=== PATIENT | female | born 1960 | race Caucasian/White ===

== ENCOUNTER → 2019-11-07 15:51 | Outpatient (CLI) | payer OTHER, SELFPAY ==
--- NOTE | 2019-11-07 | DI.MRI.S_ITS ---
PROCEDURE: MR KNEE RT WO CON INDICATIONS: RIGHT KNEE PAIN TECHNIQUE: Noncontrast sagittal PD fast spin echo and T2 fast spin echo with fat saturation, sagittal 3-D FLASH with fat saturation; coronal T1 spin echo and PD fast spin echo with fat saturation, and axial PD fast spin echo with fat saturation through the knee. COMPARISON: [facility], MR, KNEE WITHOUT CONTRAST, 10/21/2015, 12:22. FINDINGS: Image quality: Excellent. Menisci: Medial meniscal tear involving the free margin and undersurface of the body. Lateral meniscal tear also present with marked truncation of the free margin of the body, and abnormal signal extending to the superior and inferior articular surfaces of the body. Cruciate ligaments: Anterior cruciate ligament appears intact. Posterior cruciate ligament appears intact. Medial structures: The medial collateral ligament appears intact. Mild semimembranosus insertional tendinopathy. Visualized portions of the pes anserinus tendons appear normal. No abnormal bursal fluid. Lateral structures: The lateral collateral ligament intact. Biceps femoris tendon appears intact. Popliteus tendon grossly unremarkable. Iliotibial band appears intact. Anterior structures: Quadriceps tendon intact. Medial patellofemoral ligament appears intact. Thickening although grossly intact appearance of the lateral patellofemoral ligament and retinaculum. This may be related to prior chronic sprain versus reactive changes to advanced patellofemoral joint degeneration described below There is mild patellar tendinopathy. Prepatellar and superficial infrapatellar subcutaneous edema/fluid. Bones and cartilage: No focal marrow contusion or discrete low signal fracture line. T2 hyperintense partially visualized lobulated lesion seen within the distal femoral diametaphysis, incompletely evaluated. At the margin of the visualized portion, no marrow edema. Within the medial compartment, cartilage appears intact Within the lateral compartment, the diffuse partial thickness loss of the femoral articular cartilage and intrasubstance signal changes of the tibial cartilage without focal defect Within the patellofemoral compartment, severe diffuse full thickness denudation of the patellar and femoral articular cartilage with prominent subchondral sclerosis and cystic change/edema. There is also mild lateral patellar tilt and lateral patellar subluxation. Joint space: No pathologic joint effusion. Small Grove's cyst measuring 2 cm in the cephalocaudad dimension No specific evidence of intra-articular loose body. IMPRESSION: Medial meniscal tear involving the body. Lateral meniscal tear also involving the body. Severe degenerative joint disease, most pronounced in the patellofemoral compartment Thickened appearance of the lateral patellofemoral ligament with differential as described above Small 2 cm Grove's cyst. Partially visualized T2 hyperintense intramedullary lesion involving the distal femoral diametaphysis which is not entirely included on the study. Statistically this could represent low-grade chondroid lesion however recommend further evaluation with dedicated femur radiographs, and contrast-enhanced MRI to exclude malignant/metastatic processes. Dictated by: Rg Mckeon M.D. on 11/08/2019 at 8:29 Approved by: Rg Mckeon M.D. on 11/08/2019 at 8:42
== END ==
PROVIDERS: PCP Family Medicine; Visit Provider Family Medicine
DX: M25.561 Pain in right knee (principal); S83.281A Other tear of lateral meniscus, current injury, right knee, initial encounter; S83.241A Other tear of medial meniscus, current injury, right knee, initial encounter; M17.11 Unilateral primary osteoarthritis, right knee; M71.21 Synovial cyst of popliteal space [Baker], right knee; M89.9 Disorder of bone, unspecified
CPT/HCPCS: 73721

== ENCOUNTER → 2024-06-27 14:57 | Outpatient (CLI) | payer OTHER, MEDICAID, SELFPAY ==
--- NOTE | 2024-06-27 14:59 | DI.NM.S_ITS ---
PROCEDURE: NM EXERCISE TREADMILL NON NUC COMPARISON: None. INDICATIONS: CHEST PAIN FINDINGS: Patient exercised per the standard Dheeraj protocol. Total exercise time was 7 minutes and 14 seconds. Test was terminated secondary to fatigue. Maximal heart rate obtained is under 40 bpm which is 89% of maximum heart rate. Maximum blood pressure was 162/[place] [address]. Maximum METS of 7.3. No chest pains voiced. No ischemic changes noted. No arrhythmias present. Normal heart rate and blood pressure response to exercise. IMPRESSION: 1. Negative exercise treadmill stress test in terms of ischemia. Dictated by: Reji Saez M.D. on 06/27/2024 at 16:45 Approved by: Reji Saez M.D. on 06/27/2024 at 16:47
== END ==
LOC: RAD 14:58
PROVIDERS: PCP Physician Assistant; Referring Provider Internal Medicine Cardiovascular Disease; Visit Provider Internal Medicine Cardiovascular Disease
DX: R07.2 Precordial pain (principal)
CPT/HCPCS: 93017